=== PATIENT | male | born 1990 | race Caucasian/White ===

== ENCOUNTER 2021-05-07 18:25 | Inpatient (IN) | payer OTHER ==
[~2021-05-07] VITALS: Ht 175.3 cm; Wt 89.1 kg
[2021-05-07] MEDS ORDERED: NICOTINE 21MG/24HR 1 EA TRANSDERMAL TD ONE (19:30)
[2021-05-07] MEDS ORDERED: WELLTAB38 PO (20:30)
[2021-05-07] MEDS ORDERED: PROZ20CA11 PO (20:30)
[2021-05-07] MEDS ORDERED: STRA80CA PO (20:30)
[2021-05-07] MEDS ORDERED: QUET400T2 PO (20:30)
[2021-05-07] MEDS ORDERED: HOME MED LIST COMPLETE! XX SCH (20:35)
[2021-05-07 20:50] LABS: AMPHETAMINES LEVEL URINE NEGATIVE (NEGATIVE); BARBITURATES URINE NEGATIVE (NEGATIVE); BENZODIAZEPINES URINE NEGATIVE (NEGATIVE); CANNABINOIDS URINE POSITIVE (NEGATIVE); COCAINE METABOLITE URINE POSITIVE (NEGATIVE); METHADONE URINE NEGATIVE (NEGATIVE); OPIATES URINE NEGATIVE (NEGATIVE); PHENCYCLIDINE URINE NEGATIVE (NEGATIVE)
[2021-05-07] MEDS ORDERED: QUEtiapine FUMARATE 200 MG TAB PO ONE (21:00)
[2021-05-07 21:33] LABS: HEMATOCRIT 45.7 % (42.0-52.0); MEAN CORPUSCULAR HEMOGLOBIN 30.1 pg (27.0-33.0); MEAN CORPUSCULAR HGB CONC 32.8 g/dl (32.0-36.5); MEAN CORPUSCULAR VOLUME 91.6 fl (80.0-96.0); PLATELET COUNT, AUTOMATED 248 10^3/uL (150-450); RED BLOOD COUNT 4.99 10^6/uL (4.30-6.10); WHITE BLOOD COUNT 8.2 10^3/uL (4.0-10.0)
[2021-05-07 23:19] LABS: ACETAMINOPHEN LEVEL < 2.0 UG/ML (10.0-30.0); ALBUMIN 3.7 GM/DL (3.2-5.2); ALT/SGPT 32 U/L (12-78); BILIRUBIN,DIRECT 0.2 MG/DL (0.0-0.2); BILIRUBIN,TOTAL 0.5 MG/DL (0.2-1.0); BLOOD UREA NITROGEN 16 MG/DL (7-18); CALCIUM LEVEL 9.1 MG/DL (8.5-10.1); CARBON DIOXIDE LEVEL 34 MEQ/L (21-32); CHLORIDE LEVEL 104 MEQ/L (98-107); CREATININE FOR GFR 0.89 MG/DL (0.70-1.30); ETHYL ALCOHOL (ETHANOL) < 0.003 % (0.000-0.010); GLOMERULAR FILTRATION RATE > 60.0 (>60); GLUCOSE, FASTING 82 MG/DL (70-100); POTASSIUM SERUM 4.7 MEQ/L (3.5-5.1); SALICYLATE LEVEL < 1.7 MG/DL (5.0-30.0); SODIUM LEVEL 140 MEQ/L (136-145); TOTAL PROTEIN 6.9 GM/DL (6.4-8.2)
--- NOTE | 2021-05-08 06:21 | ECGEPIP ---
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
[2021-05-08] MEDS ORDERED: ATOMOXETINE HCL 40 MG CAP (STRATTERA) PO SCH (09:00)
[2021-05-08] MEDS ORDERED: FLUoxetine 20 MG CAP PO SCH (09:00)
[2021-05-08] MEDS ORDERED: buPROPion **XL** TABLET 150MG (WELLBUTRIN XL) PO SCH (09:00)
[2021-05-08 11:20] LABS: RSV AMPLIFICATION NEGATIVE (NEGATIVE)
[2021-05-08] MEDS ORDERED: traZODone 50 MG TAB PO PRN (16:10)
[2021-05-08] MEDS ORDERED: MAALOX 30 ML SUSP *UDC PO PRN (16:10)
[2021-05-08] MEDS ORDERED: hydrOXYzine 50 MG TAB PO PRN (16:10)
[2021-05-08] MEDS ORDERED: MOM 30ML SUSPENSION UDC PO PRN (16:10)
[2021-05-08] MEDS ORDERED: ACETAMINOPHEN TAB 650MG DOSE (2X325MG) PO PRN (16:10)
[2021-05-08] MEDS: OLANZapine 5 MG TAB PO PRN (16:56)
[2021-05-08 18:40] VITALS: BP 135/65
[2021-05-08] MEDS: QUEtiapine FUMARATE 200 MG TAB PO SCH (21:00)
[2021-05-08] MEDS ORDERED: QUEtiapine FUMARATE 200 MG TAB PO SCH (21:00)
[2021-05-09 05:56] VITALS: BP 139/78
[2021-05-09] MEDS: buPROPion **XL** TABLET 150MG (WELLBUTRIN XL) PO SCH (08:08)
[2021-05-09] MEDS: FLUoxetine 20 MG CAP PO SCH (08:08)
[2021-05-09] MEDS: ATOMOXETINE HCL 40 MG CAP (STRATTERA) PO SCH (08:09)
[2021-05-09] MEDS: NICOTINE 21MG/24HR 1 EA TRANSDERMAL TD SCH (09:10)
[2021-05-09] MEDS: OLANZapine 5 MG TAB PO PRN (09:49)
[2021-05-09 10:05] VITALS: BP 151/67
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
[2021-05-09] MEDS ORDERED: LORazepam 2 MG TAB PO PRN (16:45)
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
[2021-05-09 17:00] VITALS: BP 151/67
[2021-05-09] MEDS: THIAMINE 100 MG TAB PO SCH ×2 (17:12→20:08)
[2021-05-09 19:03] VITALS: BP 151/67
[2021-05-09] MEDS: QUEtiapine FUMARATE 200 MG TAB PO SCH (20:08)
[2021-05-10 06:13] VITALS: BP 112/57
[2021-05-10] MEDS: ATOMOXETINE HCL 40 MG CAP (STRATTERA) PO SCH (09:05)
[2021-05-10] MEDS: NICOTINE 21MG/24HR 1 EA TRANSDERMAL TD SCH (09:05)
[2021-05-10] MEDS: FLUoxetine 20 MG CAP PO SCH (09:05)
[2021-05-10] MEDS: buPROPion **XL** TABLET 150MG (WELLBUTRIN XL) PO SCH (09:05)
[2021-05-10] MEDS: MULTIVITAMINS/MINERALS THERAP 1 TAB PO SCH (09:05)
[2021-05-10] MEDS: THIAMINE 100 MG TAB PO SCH ×2 (09:06→20:10)
[2021-05-10] MEDS: FOLIC ACID 1 MG TAB PO SCH (09:07)
[2021-05-10] MEDS: GABAPENTIN 300 MG CAP PO PRN ×2 (10:33→20:10)
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
[2021-05-10 15:00] VITALS: BP 132/68
[2021-05-10 16:17] VITALS: BP 132/68
[2021-05-10] MEDS: OLANZapine 5 MG TAB PO PRN (17:08)
[2021-05-10] MEDS: QUEtiapine FUMARATE 200 MG TAB PO SCH (20:10)
[2021-05-11 06:39] VITALS: BP 119/74
[2021-05-11] MEDS: THIAMINE 100 MG TAB PO SCH (08:05)
[2021-05-11] MEDS: GABAPENTIN 300 MG CAP PO PRN (08:05)
[2021-05-11] MEDS: MULTIVITAMINS/MINERALS THERAP 1 TAB PO SCH (08:05)
[2021-05-11] MEDS: FLUoxetine 20 MG CAP PO SCH (08:05)
[2021-05-11] MEDS: buPROPion **XL** TABLET 150MG (WELLBUTRIN XL) PO SCH (08:05)
[2021-05-11] MEDS: ATOMOXETINE HCL 40 MG CAP (STRATTERA) PO SCH (08:06)
[2021-05-11] MEDS: NICOTINE 21MG/24HR 1 EA TRANSDERMAL TD SCH (08:06)
[2021-05-11] MEDS: FOLIC ACID 1 MG TAB PO SCH (08:06)
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
[2021-05-11] MEDS ORDERED: ATOM40CA9 PO (10:19)
[2021-05-11] MEDS ORDERED: QUET400T2 PO (10:19)
[2021-05-11] MEDS ORDERED: FLUO20CA22 PO (10:19)
[2021-05-11] MEDS ORDERED: GABA-282 PO (10:19)
[2021-05-11] MEDS ORDERED: BUPR150T12 PO (10:19)
== END 2021-05-11 15:10 | disposition home or self-care (01) | DRG 885 ==
LOC: M ED 18:25 → M ED INP 05-08 16:08 → M PSY 05-08 17:22
PROVIDERS: ADMIT Psychiatry & Neurology Psychiatry; ATTEND Psychiatry & Neurology Psychiatry
DX: F31.5 Bipolar disorder, current episode depressed, severe, with psychotic features (principal); F60.3 Borderline personality disorder; F90.9 Attention-deficit hyperactivity disorder, unspecified type; F43.10 Post-traumatic stress disorder, unspecified; Z88.0 Allergy status to penicillin; Z79.899 Other long term (current) drug therapy; F10.10 Alcohol abuse, uncomplicated; F11.90 Opioid use, unspecified, uncomplicated; F15.90 Other stimulant use, unspecified, uncomplicated; F12.90 Cannabis use, unspecified, uncomplicated; F17.200 Nicotine dependence, unspecified, uncomplicated; Z59.0 Homelessness

== ENCOUNTER 2021-05-13 05:07 | Emergency (ER) | payer OTHER ==
[~2021-05-13] VITALS: Ht 170.2 cm; Wt 89.0 kg
[~2021-05-13 05:07] MED LIST: ATOM40CA9 PO; BUPR150T12 PO; FLUO20CA22 PO; GABA-282 PO; PROZ20CA11 PO; QUET400T2 PO; STRA80CA PO; WELLTAB38 PO
[2021-05-13 05:28] LABS: HEMATOCRIT 46.1 % (42.0-52.0); HEMOGLOBIN 15.8 g/dl (13.5-17.5); MEAN CORPUSCULAR HEMOGLOBIN 30.8 pg (27.0-33.0); MEAN CORPUSCULAR HGB CONC 34.3 g/dl (32.0-36.5); MEAN CORPUSCULAR VOLUME 89.9 fl (80.0-96.0); PLATELET COUNT, AUTOMATED 264 10^3/uL (150-450); RED BLOOD COUNT 5.13 10^6/uL (4.30-6.10); WHITE BLOOD COUNT 11.7 10^3/uL (4.0-10.0)
[2021-05-13 05:30] VITALS: BP 167/83
[2021-05-13 05:38] LABS: AMPHETAMINES LEVEL URINE NEGATIVE (NEGATIVE); BARBITURATES URINE NEGATIVE (NEGATIVE); BENZODIAZEPINES URINE NEGATIVE (NEGATIVE); CANNABINOIDS URINE NEGATIVE (NEGATIVE); COCAINE METABOLITE URINE NEGATIVE (NEGATIVE); METHADONE URINE NEGATIVE (NEGATIVE); OPIATES URINE NEGATIVE (NEGATIVE); PHENCYCLIDINE URINE NEGATIVE (NEGATIVE)
[2021-05-13 06:20] LABS: ACETAMINOPHEN LEVEL < 2.0 UG/ML (10.0-30.0); ALBUMIN 4.4 GM/DL (3.2-5.2); ALT/SGPT 31 U/L (12-78); BILIRUBIN,DIRECT 0.1 MG/DL (0.0-0.2); BILIRUBIN,TOTAL 0.3 MG/DL (0.2-1.0); BLOOD UREA NITROGEN 6 MG/DL (7-18); CALCIUM LEVEL 8.8 MG/DL (8.5-10.1); CARBON DIOXIDE LEVEL 28 MEQ/L (21-32); CHLORIDE LEVEL 105 MEQ/L (98-107); CREATININE FOR GFR 0.99 MG/DL (0.70-1.30); ETHYL ALCOHOL (ETHANOL) 0.157 % (0.000-0.010); GLOMERULAR FILTRATION RATE > 60.0 (>60); GLUCOSE, FASTING 98 MG/DL (70-100); POTASSIUM SERUM 4.4 MEQ/L (3.5-5.1); SALICYLATE LEVEL < 1.7 MG/DL (5.0-30.0); SODIUM LEVEL 139 MEQ/L (136-145); TOTAL PROTEIN 7.5 GM/DL (6.4-8.2)
[2021-05-13] MEDS ORDERED: DERMABOND TOPICAL SKIN ADHESIVE TOP ONE (06:50)
[2021-05-13] MEDS ORDERED: BOOSTRIX/ADACEL VACCINE (DIPHTH/PERTUSS/ACELL/TETANUS) 0.5ML SYR IM ONE (07:35)
== END 2021-05-13 14:00 | disposition home or self-care (01) ==
LOC: M ED 05:07
DX: S51.812A Laceration without foreign body of left forearm, initial encounter (principal); Y28.9XXA Contact with unspecified sharp object, undetermined intent, initial encounter; Y92.9 Unspecified place or not applicable; Y93.9 Activity, unspecified; Y99.9 Unspecified external cause status; F19.10 Other psychoactive substance abuse, uncomplicated; F06.30 Mood disorder due to known physiological condition, unspecified; F17.200 Nicotine dependence, unspecified, uncomplicated; Z88.0 Allergy status to penicillin

== ENCOUNTER 2021-05-28 17:30 | Inpatient (IN) | payer OTHER ==
[~2021-05-28] VITALS: Ht 167.6 cm; Wt 89.9 kg
[2021-05-28] MEDS ORDERED: NS 1,000 ML IV ONE (17:45)
[2021-05-28 18:14] LABS: BASO % 0.5 % (0.0-1.0); EOS # 0.4 10^3/uL (0.0-0.5); EOS % 4.1 % (0.0-3.0); HEMATOCRIT 44.4 % (42.0-52.0); HEMOGLOBIN 15.1 g/dl (13.5-17.5); LYMPH # 1.9 10^3/uL (1.5-5.0); LYMPH % 21.8 % (24.0-44.0); MEAN CORPUSCULAR HEMOGLOBIN 30.3 pg (27.0-33.0); MONO # 0.9 10^3/uL (0.0-0.8); NEUTROPHILS # 5.4 10^3/uL (1.5-8.5); NEUTROPHILS % 63.1 % (36.0-66.0); PLATELET COUNT, AUTOMATED 245 10^3/uL (150-450); RED BLOOD COUNT 4.99 10^6/uL (4.30-6.10); WHITE BLOOD COUNT 8.6 10^3/uL (4.0-10.0)
[2021-05-28 18:34] LABS: ACETAMINOPHEN LEVEL < 2.0 UG/ML (10.0-30.0); ALBUMIN 4.2 GM/DL (3.2-5.2); ALT/SGPT 20 U/L (12-78); BILIRUBIN,DIRECT 0.3 MG/DL (0.0-0.2); BLOOD UREA NITROGEN 14 MG/DL (7-18); CALCIUM LEVEL 8.7 MG/DL (8.5-10.1); CARBON DIOXIDE LEVEL 28 MEQ/L (21-32); CHLORIDE LEVEL 103 MEQ/L (98-107); CPK CREATINE PHOSPHOKINASE 363 U/L (39-308); ETHYL ALCOHOL (ETHANOL) < 0.003 % (0.000-0.010); GLOMERULAR FILTRATION RATE > 60.0 (>60); GLUCOSE, FASTING 117 MG/DL (70-100); POTASSIUM SERUM 3.5 MEQ/L (3.5-5.1); SALICYLATE LEVEL < 1.7 MG/DL (5.0-30.0); SODIUM LEVEL 139 MEQ/L (136-145); TOTAL PROTEIN 7.3 GM/DL (6.4-8.2)
[2021-05-28 18:51] LABS: AMPHETAMINES LEVEL URINE POSITIVE (NEGATIVE); BARBITURATES URINE NEGATIVE (NEGATIVE); BENZODIAZEPINES URINE NEGATIVE (NEGATIVE); CANNABINOIDS URINE POSITIVE (NEGATIVE); COCAINE METABOLITE URINE NEGATIVE (NEGATIVE); METHADONE URINE NEGATIVE (NEGATIVE); OPIATES URINE NEGATIVE (NEGATIVE); PHENCYCLIDINE URINE NEGATIVE (NEGATIVE)
[2021-05-28 21:09] LABS: VENOUS BASE EXCESS -0.9 (-2.0-2.0); VENOUS HCO3 26.6 MEQ/L (23.0-27.0); VENOUS O2 SATURATION 99.2 % (60.0-80.0); VENOUS PARTIAL PRESSURE CO2 55.6 mmHg (38.0-50.0); VENOUS PARTIAL PRESSURE O2 178.3 mmHg (30.0-50.0); VENOUS PH 7.297 UNITS (7.330-7.430); VENOUS STANDARD HCO3 23.7 MEQ/L; VENOUS TOTAL CO2 28.3 MEQ/L (24.0-28.0)
[2021-05-28] MEDS ORDERED: LORazepam 2 MG/ML VIAL IV PRN ×2 (22:20→23:35)
[2021-05-28] MEDS ORDERED: ACETAMINOPHEN TAB 650MG DOSE (2X325MG) PO PRN (22:20)
[2021-05-28] MEDS ORDERED: D5W/0.9% SODIUM CHLORIDE 1,000 ML IV SCH (22:20)
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
[2021-05-28 22:41] LABS: RSV AMPLIFICATION NEGATIVE (NEGATIVE)
[2021-05-28] MEDS ORDERED: MED REC COMMENT (23:10)
[2021-05-28] MEDS ORDERED: QUET400T2 PO (23:10)
[2021-05-28] MEDS ORDERED: GABA-282 PO (23:10)
[2021-05-28] MEDS ORDERED: FLUO20CA22 PO (23:10)
[2021-05-28] MEDS ORDERED: ATOM40CA2 PO (23:10)
[2021-05-28] MEDS ORDERED: BUPR150T12 PO (23:10)
[2021-05-28] MEDS ORDERED: HOME MED LIST COMPLETE! XX SCH (23:15)
[2021-05-29] VITALS (9 sets, daily range): BP systolic 119–147; BP diastolic 55–70
[2021-05-29] MEDS ORDERED: FOLIC ACID 1 MG in NS 50 ML IV ONE (02:50)
[2021-05-29] MEDS ORDERED: THIAMINE 200MG 2ML VIAL IV ONE (02:55)
[2021-05-29 05:23] LABS: HEMOGLOBIN 13.6 g/dl (13.5-17.5); MEAN CORPUSCULAR HEMOGLOBIN 30.2 pg (27.0-33.0); MEAN CORPUSCULAR HGB CONC 33.2 g/dl (32.0-36.5); MEAN CORPUSCULAR VOLUME 91.1 fl (80.0-96.0); PLATELET COUNT, AUTOMATED 225 10^3/uL (150-450); WHITE BLOOD COUNT 9.4 10^3/uL (4.0-10.0)
[2021-05-29 05:47] LABS: HEMOGLOBIN A1c 5.4 %
[2021-05-29 05:57] LABS: BLOOD UREA NITROGEN 13 MG/DL (7-18); CALCIUM LEVEL 8.2 MG/DL (8.5-10.1); CARBON DIOXIDE LEVEL 29 MEQ/L (21-32); CHLORIDE LEVEL 108 MEQ/L (98-107); CPK CREATINE PHOSPHOKINASE 1734 U/L (39-308); CREATININE FOR GFR 0.75 MG/DL (0.70-1.30); GLOMERULAR FILTRATION RATE > 60.0 (>60); GLUCOSE, FASTING 97 MG/DL (70-100); SODIUM LEVEL 140 MEQ/L (136-145)
--- NOTE | 2021-05-29 06:54 | ECGEPIP ---
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
[2021-05-29] MEDS ORDERED: ENOXAPARIN 40MG/0.4ML SYRINGE (J1650 PER 10MG) SC SCH (09:00)
[2021-05-29] MEDS ORDERED: LORazepam 2 MG/ML VIAL As Ordered ONE ×2 (11:04→16:24)
[2021-05-29] MEDS: NS 1,000 ML IV SCH ×4 (11:07→21:27)
[2021-05-29] MEDS: LORazepam 2 MG/ML VIAL IV PRN ×3 (11:07→21:21)
--- NOTE | 2021-05-29 12:17 | IPNPDOC ---
Text Note Date of Service The patient was seen on 05/29/21. NOTE Subjective: Patient is a 31-year-old male who presented to the emergency [facility] after taking 100 to 200 pills an intentional overdose. Patient states today that he was trying to kill himself and when I asked why he says he does not remember. Patient does have prescriptions for atomoxetine, bupropion, fluoxetine, gabapentin, and quetiapine. Patient also has a history of polysubstance abuse. Patient was more awake this morning than the report I received overnight. Patient is otherwise doing well. Patient only complains of pain in his right glued Review of systems: General: Patient denies fevers HEENT: Patient denies headaches Cardiovascular: Patient denies chest pain Respiratory: Patient denies shortness of breath, cough GI: Patient denies abdominal pain, nausea, vomiting, diarrhea : Patient denies increased frequency or pain with urination Extremities: Patient denies swelling or pain in extremities Neurological: Patient denies numbness or tingling in legs Physical exam: Vitals: See below General: Alert and oriented male patient who was laying in bed sleeping when I walked in. Patient was easily arousable and did not appear to be in any acute d istress. HEENT: Normocephalic, atraumatic, moist mucous membranes. Neck: No lymphadenopathy or thyromegaly Cardiac: Regular rate and rhythm, no murmurs, normal S1, normal S2 Pulm: Clear to auscultation bilaterally. No wheezes, rhonchi, rales Abd: Nondistended, nontender to palpation, normal bowel sounds Ext: No edema bilateral lower extremities patient's right gluteus was swollen and tender to the touch. There was no ecchymosis in this area. Labs: See below Imaging: No new imaging has been performed Assessment/plan: 31-year-old male who presented to the hospital after taking 30 pills an in tentional overdose 1. Atomoxetine, appropriate, fluoxetine, gabapentin, and quetiapine overdose. This is a suicide attempt as the patient stated to me that he did want to end his life but did not give any reason why. We will continue to monitor the patient on telemetry. Patient is becoming more agitated today and is requiring IV Ativan. We will continue to monitor and consult psych tomorrow. 2. Metabolic encephalopathy secondary to polysubstance overdose. Continue to monitor. 3. Elevated CPK. No myoglobin in the urine however, CPK did increase. Patient's fluids were changed to normal saline at 1.5 maintenance rate which is 200 cc/h. Patient continued to have his CK increased throughout the day. Poison control was recontacted who stated that the overdose with the medications may not cause this but the fact that the patient's talk screen was positive for methamphetamine could do this. Nursing went and talked with the patient who did admit to using both Adderall and methamphetamine just prior to to the overdose. At this time, patient will be continued on 200 cc/h of normal saline with repeat basic metabolic profile and CK to be performed at 22:00 this evening in order to ensure that the patient's CK is plateauing and the patient's kidney function is still normal. We will continue to monitor at this time. 4. Gluteal swelling. Patient has swelling and tenderness of the right gluteus muscle. ice 20 minutes on and then at least 20 minutes off. We will continue to monitor. 5. Polysubstance abuse. History of methamphetamine, cocaine, THC, tobacco and alcohol abuse. Amphetamine and THC positive on drug screen. Continue to monitor. 6. Bipolar/ADHD. Hold home medications. 7. Class I obesity, complicating care. DVT Prophylaxis: Teds and sequentials Disposition: Pending patient being more awake and psychiatry consult. Patient will most likely need [facility] admission VS,Shilpi, I+O VS, Shilpi, I+O Laboratory Tests 05/28/21 17:51 05/29/21 04:56 Vital Signs Date Time Temp Pulse Resp B/P (MAP) Pulse Ox O2 Delivery O2 Flow Rate FiO2 05/29/21 09:00 93 125/60 05/29/21 08:39 98.0 16 100 Room Air I&O- Last 24 Hours up to 6 AM 05/29/21 06:00 Intake Total 1590 ml Output Total 400 ml Balance 1190 ml LOREN DEL VALLE DO May 29, 2021 12:17
[2021-05-29 16:31] LABS: BLOOD UREA NITROGEN 11 MG/DL (7-18); CALCIUM LEVEL 8.3 MG/DL (8.5-10.1); CARBON DIOXIDE LEVEL 34 MEQ/L (21-32); CHLORIDE LEVEL 106 MEQ/L (98-107); CPK CREATINE PHOSPHOKINASE 10898 U/L (39-308); CREATININE FOR GFR 0.89 MG/DL (0.70-1.30); GLOMERULAR FILTRATION RATE > 60.0 (>60); GLUCOSE, FASTING 98 MG/DL (70-100); POTASSIUM SERUM 4.7 MEQ/L (3.5-5.1); SODIUM LEVEL 141 MEQ/L (136-145)
[2021-05-29 17:13] LABS: APPEARANCE, URINE CLEAR (CLEAR); BILIRUBIN, URINE AUTO NEGATIVE (NEGATIVE); BLOOD, URINE BLOOD NEGATIVE (NEGATIVE); COLOR, URINE YELLOW (YELLOW); GLUCOSE, URINE (UA) AUTO NEGATIVE (NEGATIVE); KETONE, URINE AUTO NEGATIVE (NEGATIVE); LEUKOCYTE ESTERASE, URINE AUTO 1+ (NEGATIVE); NITRITE, URINE AUTO NEGATIVE (NEGATIVE); PROTEIN, URINE AUTO NEGATIVE (NEGATIVE); SPECIFIC GRAVITY URINE AUTO 1.013 (1.002-1.035); UROBILINOGEN, URINE AUTO 0.2 mg/dL (0.0-2.0)
[2021-05-29 17:16] LABS: BACTERIA, URINE AUTO NEGATIVE (NEGATIVE); RBC, URINE AUTO 0 /HPF (0-3); SQUAMOUS EPITHELIAL CELL UR AU 0 /HPF (0-6); WBC, URINE AUTO 25 /HPF (0-3)
[2021-05-29] MEDS: FOLIC ACID 1 MG in NS 50 ML IV SCH (21:21)
[2021-05-29] MEDS: THIAMINE 200MG 2ML VIAL IV SCH (21:21)
[2021-05-29 22:52] LABS: BLOOD UREA NITROGEN 10 MG/DL (7-18); CARBON DIOXIDE LEVEL 31 MEQ/L (21-32); CHLORIDE LEVEL 106 MEQ/L (98-107); CPK CREATINE PHOSPHOKINASE 10106 U/L (39-308); CREATININE FOR GFR 0.81 MG/DL (0.70-1.30); GLOMERULAR FILTRATION RATE > 60.0 (>60); GLUCOSE, FASTING 83 MG/DL (70-100); POTASSIUM SERUM 3.9 MEQ/L (3.5-5.1); SODIUM LEVEL 141 MEQ/L (136-145)
[2021-05-30] VITALS: BP 127/69
[2021-05-30] MEDS: LORazepam 2 MG/ML VIAL IV PRN (01:16)
[2021-05-30] MEDS: NS 1,000 ML IV SCH ×3 (03:03→15:08)
[2021-05-30 04:00] VITALS: BP 137/74
[2021-05-30 06:15] LABS: HEMATOCRIT 40.9 % (42.0-52.0); HEMOGLOBIN 13.2 g/dl (13.5-17.5); MEAN CORPUSCULAR HEMOGLOBIN 30.1 pg (27.0-33.0); MEAN CORPUSCULAR HGB CONC 32.3 g/dl (32.0-36.5); MEAN CORPUSCULAR VOLUME 93.4 fl (80.0-96.0); PLATELET COUNT, AUTOMATED 221 10^3/uL (150-450); RED BLOOD COUNT 4.38 10^6/uL (4.30-6.10); WHITE BLOOD COUNT 7.7 10^3/uL (4.0-10.0)
[2021-05-30 06:40] LABS: ALBUMIN 2.8 GM/DL (3.2-5.2); ALT/SGPT 67 U/L (12-78); BILIRUBIN,TOTAL 0.4 MG/DL (0.2-1.0); BLOOD UREA NITROGEN 7 MG/DL (7-18); CALCIUM LEVEL 7.8 MG/DL (8.5-10.1); CARBON DIOXIDE LEVEL 31 MEQ/L (21-32); CHLORIDE LEVEL 109 MEQ/L (98-107); CREATININE FOR GFR 0.66 MG/DL (0.70-1.30); GLOMERULAR FILTRATION RATE > 60.0 (>60); GLUCOSE, FASTING 102 MG/DL (70-100); POTASSIUM SERUM 4.1 MEQ/L (3.5-5.1); SODIUM LEVEL 142 MEQ/L (136-145); TOTAL PROTEIN 5.7 GM/DL (6.4-8.2)
[2021-05-30 07:20] LABS: BLOOD UREA NITROGEN 8 MG/DL (7-18); CALCIUM LEVEL 7.8 MG/DL (8.5-10.1); CARBON DIOXIDE LEVEL 31 MEQ/L (21-32); CHLORIDE LEVEL 106 MEQ/L (98-107); CPK CREATINE PHOSPHOKINASE 8106 U/L (39-308); CREATININE FOR GFR 0.72 MG/DL (0.70-1.30); GLOMERULAR FILTRATION RATE > 60.0 (>60); GLUCOSE, FASTING 103 MG/DL (70-100); MAGNESIUM LEVEL 2.3 MG/DL (1.8-2.4); POTASSIUM SERUM 4.5 MEQ/L (3.5-5.1); SODIUM LEVEL 140 MEQ/L (136-145)
[2021-05-30 08:00] VITALS: BP 145/67
--- NOTE | 2021-05-30 11:31 | IPNPDOC ---
Text Note Date of Service The patient was seen on 05/30/21. NOTE Subjective: Patient is a 31-year-old male presented the emergency department taken 120 pills and intentional overdose. Patient stated yesterday he was trying to kill himself. Patient took Adderall and methamphetamine prior to taking all these pills. Patient was found to be in rhabdomyolysis yesterday. Patient otherwise is feeling well and does not have any complaints today. Patient's right gluteus is feeling better. Review of systems: General: Patient denies fevers HEENT: Patient denies headaches Cardiovascular: Patient denies chest pain Respiratory: Patient denies shortness of breath, cough GI: Patient denies abdominal pain, nausea, vomiting, diarrhea : Patient denies increased frequency or pain with urination Extremities: Patient denies swelling or pain in extremities Neurological: Patient denies numbness or tingling in legs Physical exam: Vitals: See below General: Alert and oriented female patient who was laying in bed when I walked in. Patient was easily arousable and did not appear to be in any acute distress. HEENT: Normocephalic, atraumatic, moist mucous membranes. Neck: No lymphadenopathy or thyromegaly Cardiac: Regular rate and rhythm, no murmurs, normal S1, normal S2 Pulm: Clear to auscultation bilaterally. No wheezes, rhonchi, rales Abd: Nondistended, nontender to palpation, normal bowel sounds Ext: No edema bilateral lower extremities. Swelling to the right gluteus was improved Labs: See below Imaging: No new imaging has been performed Assessment/plan: 31-year-old male presented to hospital after taking 30 pills an intentional overdose 1. Atomoxetine, bupropion, fluoxetine, gabapentin, and quetiapine overdose. This is a suicide attempt as the patient stated he wanted to end his life but did not give a reason why. We will consult psychiatry today as patient will need [facility] to admission once medically cleared tomorrow. 2. Metabolic encephalopathy secondary to polysubstance overdose. Continue to monitor. 3. Rhabdomyolysis. Patient does not have pigmented nephropathy at this time. We will continue to monitor. Repeat CK and BMP this afternoon to ensure that this is going down. At that time if going down, fluids can be stopped. Fluids were slowed down from 1.5 maintenance rate to maintenance rate. Encourage oral intake. 4. Gluteal swelling. This has improved with ice and will continue to monitor. 5. Polysubstance abuse. Patient did use methamphetamine and Adderall prior to his suicidal attempt. Continue to monitor. 6. Bipolar/ADHD. Hold home medications. 7. Class I obesity, complicating care. DVT Prophylaxis: Teds and sequentials Disposition: Pending psychiatry consult. Will most likely need [facility] admission once medically cleared tomorrow. VS,Fishbone, I+O VS, Fishbone, I+O Laboratory Tests 05/29/21 14:52 05/29/21 21:51 05/30/21 05:16 Vital Signs Date Time Temp Pulse Resp B/P (MAP) Pulse Ox O2 Delivery O2 Flow Rate FiO2 05/30/21 08:00 97.6 73 18 145/67 (93) 99 Room Air I&O- Last 24 Hours up to 6 AM 05/30/21 06:00 Intake Total 8220.2 ml Output Total 4600 ml Balance 3620.2 ml LOREN DEL VALLE DO May 30, 2021 11:31
[2021-05-30 11:32] VITALS: BP 147/64
[2021-05-30 15:27] VITALS: BP 167/77
[2021-05-30 15:48] LABS: BLOOD UREA NITROGEN 8 MG/DL (7-18); CALCIUM LEVEL 8.3 MG/DL (8.5-10.1); CARBON DIOXIDE LEVEL 33 MEQ/L (21-32); CHLORIDE LEVEL 105 MEQ/L (98-107); CPK CREATINE PHOSPHOKINASE 6852 U/L (39-308); CREATININE FOR GFR 0.78 MG/DL (0.70-1.30); GLOMERULAR FILTRATION RATE > 60.0 (>60); GLUCOSE, FASTING 89 MG/DL (70-100); POTASSIUM SERUM 4.4 MEQ/L (3.5-5.1); SODIUM LEVEL 140 MEQ/L (136-145)
[2021-05-30] MEDS ORDERED: LORazepam 2 MG/ML VIAL IV PRN (16:35)
[2021-05-30 20:00] VITALS: BP 154/67
[2021-05-30] MEDS: FOLIC ACID 1 MG in NS 50 ML IV SCH (20:30)
[2021-05-30] MEDS: THIAMINE 200MG 2ML VIAL IV SCH (20:30)
[2021-05-31 04:00] VITALS: BP 135/63
[2021-05-31 05:16] LABS: HEMATOCRIT 43.4 % (42.0-52.0); HEMOGLOBIN 14.6 g/dl (13.5-17.5); MEAN CORPUSCULAR HEMOGLOBIN 30.8 pg (27.0-33.0); MEAN CORPUSCULAR HGB CONC 33.6 g/dl (32.0-36.5); MEAN CORPUSCULAR VOLUME 91.6 fl (80.0-96.0); PLATELET COUNT, AUTOMATED 247 10^3/uL (150-450); RED BLOOD COUNT 4.74 10^6/uL (4.30-6.10); WHITE BLOOD COUNT 9.1 10^3/uL (4.0-10.0)
--- NOTE | 2021-05-31 05:53 | MHCR ---
PSYCHIATRIC CONSULTATION DATE: 05/30/2021 This is a video assessment, he is aware of it, agrees to it, he is in the Progressive Care Unit at [facility]. I am at the clinic, this is a mostly private conversation, although there is a staff member with him just outside the door. CHIEF COMPLAINT: He took an overdose. SUBJECTIVE: He is 31 years old. He came in after he had taken a substantial overdose, apparently a handful of pills, Atomoxetine, Bupropion, Fluoxetine, Gabapentin, Quetiapine, he says he intended killing himself, had felt overwhelmed, says had been hospitalized recently, psychiatry, and was discharged about a week ago. I reviewed the current chart and suggested he has a diagnosis of bipolar disorder as well as attention deficit hyperactivity disorder, posttraumatic stress disorder. He was due to have his first visit with outpatient behavioral health at the [place] tomorrow, and then again the day after tomorrow, one locally, the other in [place]. Says has been feeling increasingly overwhelmed, hopeless, and took the overdose, says his ex-partner was at the door at the time and he was the brought to the hospital by police and the ambulance. Says the journey to the hospital was hazy, and he thinks that he lost consciousness. He had woken up as an inpatient and was admitted to the Department of Medicine, under the Hospitalist Service, I was called by Dr. Melgoza. The patient has been admitted for 24 hour observation, and I understand he is being treated for rhabdomyolysis, which is improving, but he is not yet medically cleared to be admitted to psychiatry, the Hospitalist anticipated that will happen by tomorrow. The patient says he has been eating, and has felt okay this afternoon. No confusions, no hallucinations. PAST PSYCHIATRIC HISTORY: As indicated above. Has had at least one hospitalization here, this was a couple of weeks or so ago, please refer to Dr. Arzola's discharge summary, which is reviewed, and was diagnosed with bipolar Type 1 disorder, with psychotic features, rule out schizoaffective disorder. On discharge, was on Atomoxetine 80 mg in the morning, Bupropion 450 mg daily, Fluoxetine 60 mg daily, Quetiapine 400 mg at night, Gabapentin 600 mg twice a day as needed for anxiety. MEDICAL HISTORY: Has chronic backaches, also right hand trauma, an injury he sustained when he was in the . BACKGROUND HISTORY/PERSONAL HISTORY: Please refer to the previously dictated summaries. MENTAL STATUS EXAM: He is sitting up in bed, cooperative although possibly somewhat guarded, gives short, mostly one word answers. There is no agitation. No psychomotor retardation. No abnormal movements noted. Affect is restricted. Denies any active suicidal thoughts or intents at present, or any plans. No homicidal ideations or intents. No evidence of any psychosis. Cognition is grossly intact. He is alert and oriented, no fluctuation of consciousness, intellect is average. Short-term memory is a bit challenged, in that he cannot recall any out of three objects after five minutes, but does recall one of them after prompting. Judgment and insight are compromised. ASSESSMENT: Bipolar Type 1 disorder, current episode depressed. Rule out schizoaffective disorder. Polysubstance use disorder. Status post overdose. He has made a significant attempt to take his life, and is quite unstable at present. RECOMMENDATIONS: Needs inpatient psychiatric hospitalization once he is fully medically stabilized, for further management. Per the Hospitalist, that should be achieved sometime tomorrow. Thank you for the consult, if you have any questions, please call. The assessment took 30 minutes.
[2021-05-31 06:07] LABS: BLOOD UREA NITROGEN 11 MG/DL (7-18); CALCIUM LEVEL 8.3 MG/DL (8.5-10.1); CARBON DIOXIDE LEVEL 31 MEQ/L (21-32); CHLORIDE LEVEL 103 MEQ/L (98-107); CPK CREATINE PHOSPHOKINASE 4032 U/L (39-308); CREATININE FOR GFR 0.76 MG/DL (0.70-1.30); GLOMERULAR FILTRATION RATE > 60.0 (>60); GLUCOSE, FASTING 99 MG/DL (70-100); MAGNESIUM LEVEL 2.1 MG/DL (1.8-2.4); POTASSIUM SERUM 4.1 MEQ/L (3.5-5.1); SODIUM LEVEL 139 MEQ/L (136-145)
[2021-05-31 07:27] VITALS: BP 133/63
[2021-05-31 08:00] VITALS: BP 133/63
--- NOTE | 2021-05-31 11:39 | DS.PDOC ---
Discharge Summary General Date of Admission May 28, 2021 at 17:31 Date of Discharge 05/31/2021 Attending Physician: LOREN DEL VALLE DO Specialist/Consultants Involve: Reina Horta MD Discharge Summary PROCEDURES PERFORMED DURING STAY: None. ADMITTING DIAGNOSES: 1. Atomoxetine, bupropion, fluoxetine, gabapentin, and quetiapine intentional overdose. 2. Metabolic encephalopathy 3. Elevated CPK 4. Polysubstance abuse 5. Bipolar 1/ADHD 6. Obesity class I DISCHARGE DIAGNOSES: 1. Atomoxetine, bupropion, fluoxetine, gabapentin, and quetiapine intentional overdose. 2. Metabolic encephalopathy, resolved 3. Rhabdomyolysis, improving 4. Polysubstance abuse 5. Bipolar 1/ADHD 6. Obesity class I 7. Right gluteal contusion COMPLICATIONS/CHIEF COMPLAINT: Encephalopathy Acute, Overdose. HISTORY OF PRESENT ILLNESS: Patient is a 31-year-old male who presented to the emergency department after taking 100 to 200 pills. The admitting provider obtained most of the history through chart review and discussion with the ED provider as the patient was too sedated to provide any meaningful history. Either the patient's mother or girlfriend called EMS that the patient swallowed handfuls of medication Goody atomoxetine, bupropion, fluoxetine, gabapentin, and quetiapine. Patient also has a history of polysubstance abuse including alcohol and [place]. Case was discussed with poison control who recommended monitoring the patient for 24 hours on telemetry. Patient also had a cut on his forearm which was suspected to be due to self-harm. HOSPITAL COURSE: Patient was admitted in the hospital for observation. Patient not have any events on telemetry however, patient's creatinine kinase continue to increase. Patient's creatinine kinase did increase to a plateau of 10,000. When I initially saw the patient he was sleepy but was arousable, later on the day patient became more aware. Patient did admit to using both Adderall and methamphetamine prior to the suicidal attempt which would explain the rhabdomyolysis that the patient was exhibiting. Patient was very fidgety early on but this has resolved. Patient was seen by psychiatry on 05/30/2021 who recommended involuntary admission into inpatient mental health. Patient was willing to go to inpatient mental health for further treatment. Patient's creatinine kinase continue to decrease at the expected rate after the patient's fluids been stopped. Patient did not exhibit any worsening of his renal function. Patient was deemed medically clear for discharge and was discharged inpatient mental health unit on 05/31/2021. DISCHARGE MEDICATIONS: Please see below. ALLERGIES: Please see below. PHYSICAL EXAMINATION ON DISCHARGE: VITAL SIGNS: Please see below. General: Alert and oriented male patient who was sitting up in bed eating breakfast when I walked in. Patient not appear to be in acute distress. HEENT: Normocephalic, atraumatic, moist mucous membranes. Neck: No lymphadenopathy or thyromegaly Cardiac: Regular rate and rhythm, no murmurs, normal S1, normal S2 Pulm: Clear to auscultation bilaterally. No wheezes, rhonchi, rales Abd: Nondistended, nontender to palpation, normal bowel sounds Ext: No edema bilateral lower extremities, gluteal tenderness and swelling has resolved there is no pain on palpation of the right gluteal area Psych: Patient denies any suicidal or homicidal ideation at this time. LABORATORY DATA: Please see below. IMAGING: No imaging was performed PROGNOSIS: Good ACTIVITY: As tolerated. DIET: Regular DISCHARGE PLAN: Discharge to inpatient mental health unit DISPOSITION: - [facility] DISCHARGE INSTRUCTIONS: 1. Follow up with the inpatient mental health unit provider once you are admitted to the unit. ITEMS TO FOLLOWUP ON ON OUTPATIENT: 1. Starting psychiatric medications as these what he overdosed on. DISCHARGE CONDITION: Stable. TIME SPENT ON DISCHARGE: 35 minutes. Vital Signs/I&Os Vital Signs Date Time Temp Pulse Resp B/P (MAP) Pulse Ox O2 Delivery O2 Flow Rate FiO2 05/31/21 08:00 133/63 05/31/21 07:27 98.0 80 18 98 Room Air I&O- Last 24 Hours up to 6 AM 05/31/21 06:00 Intake Total 2520 ml Output Total 2600 ml Balance -80 ml Laboratory Data Labs 24H Laboratory Tests 2 05/30/21 14:19: Anion Gap 2L, Glomerular Filtration Rate > 60.0, Calcium Level 8.3L, Total Creatine Kinase 6852H 05/31/21 04:46: Anion Gap 5L, Glomerular Filtration Rate > 60.0, Calcium Level 8.3L, Total Creatine Kinase 4032H, Nucleated Red Blood Cells % (auto) 0.0, Magnesium Level 2.1 CBC/BMP Laboratory Tests 05/30/21 14:19 05/31/21 04:46 Discharge Medications Scheduled Atomoxetine HCl (Atomoxetine HCl) 40 Mg Capsule, 80 MG PO DAILY, (Reported) Bupropion Hcl (Bupropion Xl) 150 Mg Tab.er.24h, 450 MG PO DAILY, (Reported) Fluoxetine Hcl (Fluoxetine HCl) 20 Mg Capsule, 60 MG PO DAILY, (Reported) Quetiapine Fumarate (Quetiapine Fumarate) 400 Mg Tablet, 400 MG PO QHS, (Reported) Scheduled PRN Gabapentin (Gabapentin) 300 Mg Capsule, 600 MG PO BID PRN for ANXIETY, (Re ported) Miscellaneous Medications [Med Rec Comment] , (Reported) MED REC OBTAINED FROM PRIOR VISIT Allergies Coded Allergies: Penicillins (Verified Allergy, Unknown, 05/07/21) LOREN DEL VALLE DO May 31, 2021 11:39
[2021-05-31 15:30] VITALS: BP 133/68
[2021-06-01] MEDS ORDERED: NICO21PAT TD (15:30)
[2021-06-01] MEDS ORDERED: NALT50TA4 PO (15:30)
[2021-06-01] MEDS ORDERED: ABIL10TA9 PO (15:31)
== END 2021-05-31 16:37 | DRG 271 ==
LOC: M ED 17:30 → M ED INP 17:31 → M PCU 23:59
PROVIDERS: ADMIT Internal Medicine; ATTEND Family Medicine
DX: T43.292A Poisoning by other antidepressants, intentional self-harm, initial encounter (principal); G93.41 Metabolic encephalopathy; F31.30 Bipolar disorder, current episode depressed, mild or moderate severity, unspecified; T46.6X2A Poisoning by antihyperlipidemic and antiarteriosclerotic drugs, intentional self-harm, initial encounter; T43.8X2A Poisoning by other psychotropic drugs, intentional self-harm, initial encounter; F10.10 Alcohol abuse, uncomplicated; E66.9 Obesity, unspecified; F17.200 Nicotine dependence, unspecified, uncomplicated; F14.10 Cocaine abuse, uncomplicated; F15.10 Other stimulant abuse, uncomplicated; F90.9 Attention-deficit hyperactivity disorder, unspecified type; Z79.899 Other long term (current) drug therapy; Z88.0 Allergy status to penicillin; F60.3 Borderline personality disorder

== ENCOUNTER 2021-05-31 13:09 | Inpatient (IN) | payer OTHER ==
[~2021-05-31] VITALS: Ht 175.3 cm; Wt 90.9 kg
[~2021-05-31 13:09] MED LIST changes: +ATOM40CA2 PO; +MED REC COMMENT
[2021-05-31] MEDS ORDERED: ACETAMINOPHEN TAB 650MG DOSE (2X325MG) PO PRN (14:05)
[2021-05-31] MEDS ORDERED: MAALOX 30 ML SUSP *UDC PO PRN (14:05)
[2021-05-31] MEDS ORDERED: MOM 30ML SUSPENSION UDC PO PRN (14:05)
[2021-05-31] MEDS ORDERED: traZODone 50 MG TAB PO PRN (14:05)
[2021-06-01 06:40] VITALS: BP 146/82
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
[2021-06-01] MEDS: NICOTINE 21MG/24HR 1 EA TRANSDERMAL TD SCH (10:12)
[2021-06-01] MEDS: NALTREXONE 50 MG TAB PO SCH (10:12)
[2021-06-01] MEDS: OLANZapine ORAL DISINTEGRATING TAB 5MG PO PRN (12:27)
[2021-06-01] MEDS ORDERED: HOME MED LIST COMPLETE! XX SCH (14:30)
[2021-06-01] MEDS ORDERED: NICO21PAT TD (15:30)
[2021-06-01] MEDS ORDERED: NALT50TA4 PO (15:30)
[2021-06-01] MEDS ORDERED: ABIL10TA9 PO (15:31)
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
--- NOTE | 2021-06-01 17:06 | REP ---
INDICATION: screen. COMPARISON: No comparison chest x-ray. TECHNIQUE: Two views.. FINDINGS: The lungs are well inflated and free of infiltrate. The pleural angles are sharp. The heart size is normal. Pulmonary vasculature is not increased. No significant bony abnormality is seen. IMPRESSION: Negative chest x-ray. <Electronically signed by Jimmy Ridley > 06/01/21 [id number]
[2021-06-01 18:56] VITALS: BP 106/64
[2021-06-01] MEDS ORDERED: ARIPiprazole 10 MG TAB PO SCH (21:00)
[2021-06-02 06:38] VITALS: BP 162/67
--- NOTE | 2021-06-02 07:22 | ECGEPIP ---
[facility] Test Date: 2021-06-01 Pat Name: AN REYES Department: Room: [place] [address] Gender: Male Ware[employer] Order Puller: ANAMARIA : 1990 Requested By: NORBERTO Mojica Order Number: [id number] Reading MD: Maranda Olmos Measurements Intervals [place] Rate: 64 P: -10 DC: 138 QRS: 71 QRSD: 78 T: 40 QT: 372 QTc: 383 Interpretive Statements Normal sinus rhythm RATE SLOWER C/W 05/28/21 Electronically Signed on 06-02-2021 7:21:55 EDT by Maranda Olmos
[2021-06-02] MEDS: NALTREXONE 50 MG TAB PO SCH (08:42)
[2021-06-02] MEDS: NICOTINE 21MG/24HR 1 EA TRANSDERMAL TD SCH (08:42)
[2021-06-02 08:56] LABS: CHOLESTEROL RISK RATIO 2.583 (<5); THYROID STIMULATING HORMONE 1.85 uIU/ML (0.358-3.740)
--- NOTE | 2021-06-02 11:57 | MHIPNPDOC ---
[facility] Progress Note Progress Note DATE OF SERVICE: 06/02/21 HISTORY: Patient is a 31 -year-old , male, with a history of bipolar disorder, borderline personality sorter, ADHD, obesity class I and polysubstance abuse who presents after intentional overdose suicide attempt and resultant metabolic encephalopathy. Per chart review took 100 to 200 pills including atomoxetine, bupropion, fluoxetine, gabapentin, Seroquel. Per chart review mother girlfriend called EMS which led to police bringing him to the hospital. Here he was stabilized on fluids and per poison control 24 hours telemetry and medically cleared before arriving to the [facility]. On the medical floor CK was found to be greater than 10,000 in context of rhabdomyolysis, had endorse methamphetamine and Adderall use which led to positive toxicology for amphetamines and cannabis use was positive on toxicology, CK trended down with the fluids to 4032 after the fluids were stopped, renal function was maintained. On the medical floor psychiatry was consulted and he did endorse he intended to kill himself. Was due to have an outpatient behavior health visit at the [place] the day following the suicide attempt. Interval: An attempt was made yesterday to laterally transfer to [place] inpatient,had to be evaluate by medical team and further work-up was required, possible transfer today. Labs were reviewed and within normal limits. Has been taking medications including naltrexone and Abilify, denies any acute side effects or physical complaints. Agrees to have Seroquel 50 put on for sleep as this has helped him in the past and his sleep remains poor reportedly, not solely due to the noise on the unit. Has not been attending groups and is encouraged to do so. For review by other provider Dr. Rich feels patient possibly minimizing symptoms when conducting [facility] paperwork, has concerns for safety. Met with patient multiple times per request to discuss treatment planning. VITAL SIGNS: See below. NEW TEST RESULTS: Labs reviewed from order yesterday including EKG with normal sinus rhythm 383 ms QTc, negative chest x-ray, CK is 997 which is trended down f rom 4000s prior to admission, despite no fluids, lipid panel within normal limits, TSH within normal limits. CURRENT MEDICATIONS: See below. MENTAL STATUS EXAMINATION: General Appearance: unkempt, lacerations, healed scars, other (L arm, also tattoos on face/arm) Build: average Demeanor: irritable, guarded, more cooperative Eye Contact: improved Activity: agitated Behavior: resistant Speech: clear, reg/rate,rhythm,volume Mood: "okay" Affect: constricted, anxious, irritable Thought Process: logical/linear Thought Content (Delusions): none reported Thought Content (Other): none reported Thought Content (Aggressive): none reported Perception (Hallucinations): none reported Perception (Other): none reported Cognition (Impairment of): none reported Cognition(Intelligence Est.): average Oriented: Awake, Alert, Oriented times three Insight: poor Judgment: Poor Psychosis: Denies DIAGNOSES: Bipolar disorder per hx Methamphetamine use disorder Cannabis use disorder Alcohol use disorder Antisocial personality disorder ASSESSMENT: Patient continues to improve on the unit, however has not been attending groups, is likely minimizing symptoms as he prefers to be discharged. Explained he requires extended stay to maintain safety and develop a safe discharge plan as well as response to medications for mood and impulsivity. MANAGEMENT PLAN: Start Seroquel 50 mg nightly for sleep, continue Abilify 10 mg evening for mood stability and impulsivity. Pending possible transfer to [place] inpatient. Continues to require inpatient admission due to severity of recent suicide attempt, and likely minimizing of symptoms, also in context of medication changes. TIME SPENT: 30 minutes. Vital Signs Vital Signs Date Time Temp Pulse Resp B/P (MAP) Pulse Ox O2 Delivery O2 Flow Rate FiO2 06/02/21 06:38 97.6 71 18 162/67 (98) 99 Room Air Laboratory Data 24H Labs Laboratory Tests 2 06/02/21 07:48: Total Creatine Kinase 997#H, Triglycerides Level 85, Total Cholesterol 155, LDL Cholesterol 78, Non-HDL Cholesterol (LDL + VLDL) 95, Total HDL Cholesterol 60, Cholesterol/HDL Ratio 2.583, Thyroid Stimulating Hormone (TSH) 1.850 Current Medications Current Medications Medications (Trade) Dose Ordered Sig/Diogo Route PRN Reason Start Time Stop Time Status Last Admin Dose Admin Acetaminophen (Tylenol Tab) 650 mg Q6HP PRN PO HEADACHE or MILD DISCOMFORT 05/31/21 14:05 Al Hydrox/Mg Hydrox/Simethicone (Mylanta) 30 ml Q4HP PRN PO HEARTBURN/INDIGESTION 05/31/21 14:05 Aripiprazole (AbiLIFY) 10 mg QHS PO 06/01/21 21:00 06/01/21 20:02 Home Med (Home Med List Complete!) ASDIRECTED XX 06/01/21 14:30 06/01/21 14:33 DC Magnesium Hydroxide (Milk Of Magnesia) 30 ml DAILYPRN PRN PO CONSTIPATION 05/31/21 14:05 Naltrexone HCl (Revia) 50 mg QAM PO 06/01/21 09:00 06/02/21 08:42 Nicotine (Nicoderm Cq 21mg) 1 patch DAILY TD 06/01/21 09:00 06/02/21 08:42 Olanzapine (ZyPREXA ZYDIS) 5 mg Q4HP PRN PO ANXIETY/AGITATION 05/31/21 14:25 06/01/21 12:27 Trazodone HCl (Desyrel) 50 mg QHSP PRN PO INSOMNIA 05/31/21 14:05 06/01/21 20:02 Allergies Coded Allergies: Penicillins (Verified Allergy, Unknown, 05/07/21) NORBERTO LINO MD Jun 02, 2021 11:57
[2021-06-02] MEDS: OLANZapine ORAL DISINTEGRATING TAB 5MG PO PRN (13:35)
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
[2021-06-02] MEDS ORDERED: QUET50TA4 PO (15:16)
[2021-06-02] MEDS ORDERED: QUEtiapine FUMARATE 50MG TAB PO SCH (21:00)
== END 2021-06-02 16:45 | DRG 882 ==
LOC: M PSY 14:12
PROVIDERS: ADMIT Psychiatry & Neurology Psychiatry; ATTEND Student in an Organized Health Care Education/Training Program
DX: F43.10 Post-traumatic stress disorder, unspecified (principal); F31.9 Bipolar disorder, unspecified; F10.10 Alcohol abuse, uncomplicated; F12.90 Cannabis use, unspecified, uncomplicated; F15.90 Other stimulant use, unspecified, uncomplicated; F60.3 Borderline personality disorder; E66.9 Obesity, unspecified; Z88.0 Allergy status to penicillin; Z79.899 Other long term (current) drug therapy